=== PATIENT | male | born 1955 | race Caucasian/White ===

== ENCOUNTER 2018-07-23 11:22 | Observation (INO) ==
[2018-07-23] MEDS ORDERED: ASPIRIN 325 MG TABLET ONE (11:42)
[2018-07-23] MEDS ORDERED: ASPIRIN 325 MG TABLET PO STA (11:49)
[2018-07-23] MEDS ORDERED: SODIUM CHLORIDE 0.9% 1,000 ML IV STA (11:51)
[2018-07-23 11:55] LABS: Basophils # 0.1 10*3/uL (0.0-0.2); Basophils % 0.4 % (0.0-0.8); Eosinophils # 0.4 10*3/uL (0.0-0.87); Eosinophils % 3.2 % (0.00-10.9); Hematocrit 39.2 VOL% (42.0-52.0); Hemoglobin 12.3 GM/DL (14.0-18.0); Immature Granulocytes Absolute 0.13 #; Lymphocytes # 3.4 10*3/uL (1.4-4.0); Mean Corpuscular HGB Conc 31.4 GM/DL (32-36); Mean Corpuscular Volume 84.8 FL (87-102); Mean Platelet Volume 9.3 FL (9.6-12.0); Monocytes % 10.5 % (1.7-12.7); Neutrophils % 59.9 % (38.7-73.9); Platelet Count 394 T/CUMM (130-400); Red Blood Count 4.62 MC/CUMM (3.8-5.5); Red Cell Distribution Width 16.2 % (9.3-17.3); White Blood Count 13.6 T/CUMM (4-12)
[2018-07-23 12:04] LABS: INR 0.9; Partial Thromboplastin Time < 21.0 SECS (0-40)
[2018-07-23 12:15] LABS: Albumin 3.6 G/DL (3.4-5.0); Bilirubin,Total 0.4 MG/DL (0.2-1.0); Calcium 8.7 MG/DL (8.5-10.1); Osmolality,Calculated 285.5 MOS/KG (273-304); Total Protein 6.6 G/DL (6.4-8.3)
[2018-07-23 12:19] LABS: Troponin I < 0.015 NG/ML (0.00-0.045)
[2018-07-23 15:06] LABS: Apearance,Urine CLEAR (Clear); Bilirubin,Urine Negative (Negative); Blood, Urine Negative (Negative); Glucose,Urine (UA) Negative (Negative); Ketones,Urine 5 mg/dL (Negative); Nitrite,Urine Negative (Negative); Protein,Urine Negative; RBC,Urine <1 /HPF (0-4); Urine Color Yellow (Yellow); Urine Specific Gravity 1.058 (1.001-1.035); Urine Urobilinogen < 2.0 EU/DL (0.2-1.0); WBC,Urine 2 /HPF (0-6)
[2018-07-23 15:10] LABS: Barbiturates Screen,Urine Negative (Negative); Benzodiazepines Screen,Urine Negative (Negative); Cannabinoid Screen,Urine Negative (Negative); Opiate Screen,Urine Negative (Negative); Phencyclidine Screen,Urine Negative (Negative)
[2018-07-23] MEDS ORDERED: ONDANSETRON 4 MG/2 ML VIAL IV PRN (15:25)
[2018-07-23] MEDS ORDERED: ACETAMINOPHEN 325 MG TABLET PO PRN (15:25)
[2018-07-23] MEDS ORDERED: ENOXAPARIN 100 MG/ML SYRINGE SUBCUT SCH (16:00)
[2018-07-23] MEDS: SODIUM CHLORIDE 0.9% 1,000 ML IV SCH (16:30)
[2018-07-23 19:11] LABS: Hematocrit 35.7 VOL% (42.0-52.0)
[2018-07-23] MEDS: GEMFIBROZIL 600 MG TABLET PO SCH (20:21)
[2018-07-23] MEDS ORDERED: TAMSULOSIN 0.4 MG CAPSULE PO SCH (21:00)
[2018-07-23] MEDS ORDERED: ATORVASTATIN 10 MG TABLET PO SCH (21:00)
[2018-07-23] MEDS ORDERED: CARBIDOPA/LEVODOPA 25-100 MG TABLET PO SCH (21:00)
[2018-07-24 01:00] LABS: Calcium 7.8 MG/DL (8.5-10.1); Osmolality,Calculated 286.3 MOS/KG (273-304); Risk Ratio 2.47; Thyroid Stimulating Hormone 1.11 uIU/ml (0.358-3.74); VLDL CHOLESTEROL 45.6 MG/DL
[2018-07-24 01:03] LABS: Hematocrit 36.2 VOL% (42.0-52.0); Hemoglobin 11.2 GM/DL (14.0-18.0)
[2018-07-24] MEDS: SODIUM CHLORIDE 0.9% 1,000 ML IV SCH ×2 (01:49→08:51)
[2018-07-24 05:02] LABS: Basophils % 0.3 % (0.0-0.8); Eosinophils # 0.3 10*3/uL (0.0-0.87); Eosinophils % 3.6 % (0.00-10.9); Hematocrit 37.3 VOL% (42.0-52.0); Hemoglobin 11.5 GM/DL (14.0-18.0); Immature Granulocytes % 0.7 %; Immature Granulocytes Absolute 0.06 #; Lymphocytes # 1.4 10*3/uL (1.4-4.0); Lymphocytes % 15.2 % (21.2-54.2); Mean Corpuscular HGB Conc 30.8 GM/DL (32-36); Mean Corpuscular Volume 86.1 FL (87-102); Mean Platelet Volume 9.7 FL (9.6-12.0); Monocytes % 6.9 % (1.7-12.7); Neutrophils % 73.3 % (38.7-73.9); Platelet Count 326 T/CUMM (130-400); Red Blood Count 4.33 MC/CUMM (3.8-5.5); Red Cell Distribution Width 16.3 % (9.3-17.3)
[2018-07-24] MEDS: GEMFIBROZIL 600 MG TABLET PO SCH (08:53)
[2018-07-24] MEDS: PANTOPRAZOLE 40 MG TABLET PO SCH ×2 (08:54→08:58)
[2018-07-24] MEDS ORDERED: TAMSULOSIN 0.4 MG CAPSULE PO SCH (09:00)
[2018-07-24] MEDS ORDERED: predniSONE 5 MG TABLET PO SCH (09:00)
[2018-07-24] MEDS ORDERED: ENOXAPARIN 40 MG/0.4 ML SYRINGE SUBCUT SCH (09:00)
[2018-07-24] MEDS ORDERED: LOSARTAN 50 MG TABLET PO SCH (09:00)
[2018-07-24 12:30] VITALS: BP 129/76
[2018-07-24] MEDS ORDERED: ASPIRIN CHEW 81 MG TABLET PO SCH (20:00)
[2018-07-26] MEDS ORDERED: METHOTREXATE 50 MG/2 ML VIAL SUBCUT SCH (09:00)
== END 2018-07-24 15:08 | disposition home or self-care (01) ==
LOC: N.ED 11:22 → N.EDINP 11:22 → N.TELES 17:50
PROVIDERS: ADMIT Internal Medicine; ATTEND Internal Medicine

== ENCOUNTER 2020-10-12 10:20 | Inpatient (IN) ==
[2020-10-12 11:34] LABS: Basophils % 0.1 % (0.0-0.8); Eosinophils # 0.3 10*3/uL (0.0-0.87); Eosinophils % 1.8 % (0.00-10.9); Hematocrit 28.7 VOL% (42.0-52.0); Hemoglobin 8.6 GM/DL (14.0-18.0); Immature Granulocytes % 0.7 %; Immature Granulocytes Absolute 0.12 #; Lymphocytes # 0.8 10*3/uL (1.4-4.0); Mean Corpuscular Volume 73.8 FL (87-102); Mean Platelet Volume 8.6 FL (9.6-12.0); Monocytes % 7.3 % (1.7-12.7); Neutrophils % 85.1 % (38.7-73.9); Platelet Count 551 T/CUMM (130-400); Red Blood Count 3.89 MC/CUMM (3.8-5.5); Red Cell Distribution Width 22.9 % (9.3-17.3); White Blood Count 16.1 T/CUMM (4-12)
[2020-10-12 11:51] LABS: Hypochromasia 1+
[2020-10-12 11:52] LABS: Anisocytosis 1+; Microcytosis 1+; Platelet Estimate Increased; Polychromasia Slight
[2020-10-12 11:57] LABS: Albumin 3.1 G/DL (3.4-5.0); Bilirubin,Total 0.4 MG/DL (0.20-1.00); Calcium 8.2 MG/DL (8.5-10.1); Potassium 3.5 MMOL/L (3.5-5.1); Total Protein 6.2 G/DL (6.4-8.2)
[2020-10-12] MEDS ORDERED: HYDROmorphone 2 MG/1 ML VIAL IV STA (14:04)
[2020-10-12] MEDS ORDERED: PIPERACILLIN/TAZOBACTAM 3,375 MG in SODIUM CHLORIDE 0.9% 100 ML IV STA ×2 (14:04→14:07)
[2020-10-12] MEDS ORDERED: ONDANSETRON 4 MG/2 ML VIAL IV ONE (14:04)
[2020-10-12] MEDS ORDERED: GLUCAGON 1 MG VIAL IM PRN (15:00)
[2020-10-12] MEDS ORDERED: DEXTROSE 50% 25 GM/50 ML VIAL IV PRN (15:00)
[2020-10-12] MEDS ORDERED: ACETAMINOPHEN 325 MG TABLET PO PRN (15:00)
[2020-10-12] MEDS ORDERED: methylPREDNISolone SOD SUC 125 MG/2 ML VIAL IV STA (15:28)
[2020-10-12] MEDS: SODIUM CHLORIDE 0.9% 1,000 ML IV SCH (17:23)
[2020-10-12] MEDS: CIPROFLOXACIN INJ 400 MG/200 ML PREMIX IV SCH (17:27)
[2020-10-12] MEDS: methylPREDNISolone SOD SUC 40 MG/1 ML VIAL IV SCH ×2 (17:30→23:02)
[2020-10-12] MEDS: MESALAMINE 250 MG CAPSULE PO SCH ×2 (18:21→20:45)
[2020-10-12] MEDS: metroNIDAZOLE INJ 500 MG/100 ML PREMIX IV SCH ×2 (19:02→23:02)
[2020-10-12] MEDS: ONDANSETRON 4 MG/2 ML VIAL IV PRN (19:02)
[2020-10-12] MEDS: ENOXAPARIN 40 MG/0.4 ML SYRINGE SUBCUT SCH (19:06)
[2020-10-12 19:44] LABS: Bilirubin,Urine Negative (Negative); Blood, Urine Negative (Negative); Glucose,Urine (UA) Negative (Negative); Ketones,Urine Negative (Negative); Nitrite,Urine Negative (Negative); Protein,Urine Negative; RBC,Urine 1 /HPF (0-4); Urine Appearance CLEAR (Clear); Urine Color Yellow (Yellow); Urine Specific Gravity 1.025 (1.001-1.035); Urine Urobilinogen < 2.0 EU/DL (0.2-1.0)
[2020-10-12] MEDS: HydrOXYzine PAMOATE 50 MG CAPSULE PO PRN (20:44)
[2020-10-12] MEDS: CARBIDOPA/LEVODOPA 25-100 MG TABLET PO SCH (20:45)
[2020-10-12] MEDS: gemfibroziL 600 MG TABLET PO SCH (20:45)
[2020-10-12] MEDS: HYDROmorphone 2 MG/1 ML VIAL IV PRN (22:01)
[2020-10-13] MEDS: SODIUM CHLORIDE 0.9% 1,000 ML IV SCH ×3 (02:19→20:46)
[2020-10-13] MEDS: CIPROFLOXACIN INJ 400 MG/200 ML PREMIX IV SCH ×2 (03:18→15:48)
[2020-10-13 06:11] LABS: Basophils % 0.1 % (0.0-0.8); Hematocrit 27.7 VOL% (42.0-52.0); Hemoglobin 8.2 GM/DL (14.0-18.0); Immature Granulocytes % 0.8 %; Lymphocytes # 0.6 10*3/uL (1.4-4.0); Lymphocytes % 4.2 % (21.2-54.2); Mean Corpuscular HGB Conc 29.6 GM/DL (32-36); Mean Corpuscular Volume 73.7 FL (87-102); Mean Platelet Volume 8.7 FL (9.6-12.0); Monocytes % 1.2 % (1.7-12.7); Neutrophils % 93.7 % (38.7-73.9); Platelet Count 525 T/CUMM (130-400); Red Blood Count 3.76 MC/CUMM (3.8-5.5); Red Cell Distribution Width 22.7 % (9.3-17.3); White Blood Count 13.2 T/CUMM (4-12)
[2020-10-13 06:37] LABS: Calcium 7.9 MG/DL (8.5-10.1); Osmolality,Calculated 285.3 MOS/KG (273-304); Potassium 4.1 MMOL/L (3.5-5.1)
[2020-10-13 06:41] LABS: % Iron Saturation 2.4 % (18-50); Ferritin 37.8 ng/ml (26-388)
[2020-10-13 06:44] LABS: Lymphocytes 2 % (20-55); Segmented Neutrophils 96 % (50-85); Total Cells Counted 100
[2020-10-13 06:45] LABS: Hypochromasia Slight; Ovalocytes 1+
[2020-10-13 06:46] LABS: Macrocytosis 1+; Microcytosis 1+; Platelet Estimate Increased; Schistocytes 1+
[2020-10-13] MEDS: HYDROmorphone 2 MG/1 ML VIAL IV PRN ×3 (07:53→20:01)
[2020-10-13] MEDS: methylPREDNISolone SOD SUC 40 MG/1 ML VIAL IV SCH ×3 (09:18→23:45)
[2020-10-13] MEDS: metroNIDAZOLE INJ 500 MG/100 ML PREMIX IV SCH ×3 (09:18→23:45)
[2020-10-13] MEDS: FOLIC ACID 1 MG TABLET PO SCH (09:19)
[2020-10-13] MEDS: MESALAMINE 250 MG CAPSULE PO SCH ×4 (09:19→20:47)
[2020-10-13] MEDS: FLUDROCORTISONE 0.1 MG TABLET PO SCH (09:19)
[2020-10-13] MEDS: gemfibroziL 600 MG TABLET PO SCH ×2 (09:19→20:48)
[2020-10-13] MEDS: TAMSULOSIN 0.4 MG CAPSULE PO SCH ×2 (09:23→20:48)
[2020-10-13] MEDS: ONDANSETRON 4 MG/2 ML VIAL IV PRN ×3 (10:23→20:49)
[2020-10-13] MEDS ORDERED: IRON DEXTRAN 25 MG in SYRINGE 1 EACH IV ONE (10:30)
[2020-10-13] MEDS ORDERED: IRON SUCROSE IV ONE ×3 (10:30→11:30)
[2020-10-13] MEDS ORDERED: SODIUM CHLORIDE 0.9% IV ONE (10:38)
[2020-10-13] MEDS ORDERED: ZALEPLON 5 MG CAPSULE PO PRN (14:43)
[2020-10-13] MEDS: ENOXAPARIN 40 MG/0.4 ML SYRINGE SUBCUT SCH (15:52)
[2020-10-13] MEDS: CARBIDOPA/LEVODOPA 25-100 MG TABLET PO SCH (20:46)
[2020-10-14] MEDS: CIPROFLOXACIN INJ 400 MG/200 ML PREMIX IV SCH ×2 (02:31→19:21)
[2020-10-14] MEDS: HYDROmorphone 2 MG/1 ML VIAL IV PRN (03:13)
[2020-10-14 06:08] LABS: Basophils % 0.1 % (0.0-0.8); Hematocrit 23.1 VOL% (42.0-52.0); Hemoglobin 6.8 GM/DL (14.0-18.0); Immature Granulocytes % 0.9 %; Immature Granulocytes Absolute 0.15 #; Lymphocytes # 0.4 10*3/uL (1.4-4.0); Lymphocytes % 2.5 % (21.2-54.2); Mean Corpuscular HGB Conc 29.4 GM/DL (32-36); Mean Corpuscular Volume 73.8 FL (87-102); Mean Platelet Volume 8.9 FL (9.6-12.0); Monocytes % 0.9 % (1.7-12.7); NRBC # 0.03 10*3/uL; Neutrophils % 95.6 % (38.7-73.9); Platelet Count 492 T/CUMM (130-400); Red Blood Count 3.13 MC/CUMM (3.8-5.5); Red Cell Distribution Width 22.5 % (9.3-17.3); White Blood Count 17.1 T/CUMM (4-12)
[2020-10-14 06:42] LABS: Alanine Aminotransferase < 9 U/L (16-61); Albumin 2.4 G/DL (3.4-5.0); Alkaline Phosphatase 38 U/L (45-117); Aspartate Amino Transferase 13 U/L (0-37); Blood Urea Nitrogen 15 MG/DL (7-18); Calcium 7.4 MG/DL (8.5-10.1); Carbon Dioxide 24 MMOL/L (21-32); Estimated Glom Filtration Rate 118 ML/MIN; Glucose 155 MG/DL (74-106); Osmolality,Calculated 280.5 MOS/KG (273-304); Potassium 3.8 MMOL/L (3.5-5.1); Sodium 139 MMOL/L (136-145); Total Protein 5.5 G/DL (6.4-8.2)
[2020-10-14 07:15] LABS: Band Neutrophils 5 % (0-10); Lymphocytes 2 % (20-55); Nucleated Red Blood Cells 1 (0-5); Platelet Estimate Normal; Segmented Neutrophils 92 % (50-85); Total Cells Counted 100
[2020-10-14 07:16] LABS: Anisocytosis 3+; Hypersegmented Neutrophil Few; Ovalocytes Few
[2020-10-14] MEDS ORDERED: SODIUM CHLORIDE 0.9% 1,000 ML IV PRN (07:18)
[2020-10-14] MEDS ORDERED: FUROSEMIDE 20 MG/2 ML VIAL IV ONE ×3 (07:19→21:30)
[2020-10-14] MEDS: methylPREDNISolone SOD SUC 40 MG/1 ML VIAL IV SCH ×2 (08:35→22:23)
[2020-10-14] MEDS: ONDANSETRON 4 MG/2 ML VIAL IV PRN ×3 (08:35→17:01)
[2020-10-14] MEDS: FLUDROCORTISONE 0.1 MG TABLET PO SCH (08:39)
[2020-10-14] MEDS: metroNIDAZOLE INJ 500 MG/100 ML PREMIX IV SCH ×2 (08:40→17:01)
[2020-10-14] MEDS: MESALAMINE 250 MG CAPSULE PO SCH ×4 (08:40→22:24)
[2020-10-14] MEDS: FOLIC ACID 1 MG TABLET PO SCH (08:40)
[2020-10-14] MEDS: gemfibroziL 600 MG TABLET PO SCH ×2 (08:40→22:25)
[2020-10-14] MEDS: TAMSULOSIN 0.4 MG CAPSULE PO SCH (08:41)
[2020-10-14] MEDS ORDERED: ESZOPICLONE 1 MG TABLET PO PRN (09:35)
[2020-10-14] MEDS: SODIUM CHLORIDE 0.9% 1,000 ML IV SCH (12:07)
[2020-10-14] MEDS ORDERED: RIZATRIPTAN ODT 5 MG TABLET PO PRN (13:57)
[2020-10-14] MEDS ORDERED: oxyCODONE/ACETAMINOPHEN 5-325 MG TABLET PO PRN (13:58)
[2020-10-14] MEDS: CARBIDOPA/LEVODOPA 25-100 MG TABLET PO SCH (22:23)
[2020-10-15] MEDS: metroNIDAZOLE INJ 500 MG/100 ML PREMIX IV SCH ×3 (00:01→15:45)
[2020-10-15] MEDS: TAMSULOSIN 0.4 MG CAPSULE PO SCH ×2 (01:30→09:46)
[2020-10-15] MEDS: CIPROFLOXACIN INJ 400 MG/200 ML PREMIX IV SCH ×2 (05:33→15:44)
[2020-10-15] MEDS: SODIUM CHLORIDE 0.9% 1,000 ML IV SCH ×2 (05:34→06:45)
[2020-10-15 05:42] LABS: Basophils % 0.1 % (0.0-0.8); Hematocrit 28.5 VOL% (42.0-52.0); Hemoglobin 8.7 GM/DL (14.0-18.0); Immature Granulocytes % 1.1 %; Immature Granulocytes Absolute 0.14 #; Lymphocytes # 0.5 10*3/uL (1.4-4.0); Lymphocytes % 3.7 % (21.2-54.2); Mean Corpuscular HGB Conc 30.5 GM/DL (32-36); Mean Corpuscular Volume 76.4 FL (87-102); Mean Platelet Volume 8.8 FL (9.6-12.0); Monocytes % 1.5 % (1.7-12.7); Neutrophils % 93.6 % (38.7-73.9); Platelet Count 438 T/CUMM (130-400); Red Blood Count 3.73 MC/CUMM (3.8-5.5); Red Cell Distribution Width 22.8 % (9.3-17.3)
[2020-10-15 06:04] LABS: Calcium 7.5 MG/DL (8.5-10.1); Osmolality,Calculated 284.3 MOS/KG (273-304); Potassium 4.2 MMOL/L (3.5-5.1)
[2020-10-15 07:27] LABS: Anisocytosis 3+; Lymphocytes 4 % (20-55); Ovalocytes Few; Platelet Estimate Normal; Poikilocytosis Slight; Segmented Neutrophils 95 % (50-85); Total Cells Counted 100
[2020-10-15] MEDS: methylPREDNISolone SOD SUC 40 MG/1 ML VIAL IV SCH ×3 (09:45→21:54)
[2020-10-15] MEDS: FLUDROCORTISONE 0.1 MG TABLET PO SCH (09:45)
[2020-10-15] MEDS: MESALAMINE 250 MG CAPSULE PO SCH ×4 (09:45→21:53)
[2020-10-15] MEDS: gemfibroziL 600 MG TABLET PO SCH ×2 (09:46→21:53)
[2020-10-15] MEDS: FOLIC ACID 1 MG TABLET PO SCH (09:46)
[2020-10-15] MEDS ORDERED: FUROSEMIDE 40 MG/4 ML VIAL IV ONE (13:52)
[2020-10-15] MEDS ORDERED: ALBUTEROL/IPRATROPIUM 3 ML NEB RESP TX PRN (13:53)
[2020-10-15 17:04] LABS: Bilirubin,Urine Negative (Negative); Blood, Urine Negative (Negative); Glucose,Urine (UA) Negative (Negative); Hyaline Casts,Urine 4 /LPF (0-3); Ketones,Urine Negative (Negative); Nitrite,Urine Negative (Negative); Protein,Urine Negative; Urine Appearance CLEAR (Clear); Urine Color Yellow (Yellow); Urine Specific Gravity 1.015 (1.001-1.035); Urine Urobilinogen < 2.0 EU/DL (0.2-1.0)
[2020-10-15] MEDS ORDERED: HydrOXYzine PAMOATE 25 MG CAPSULE PO PRN (21:50)
[2020-10-15] MEDS: CARBIDOPA/LEVODOPA 25-100 MG TABLET PO SCH (21:53)
[2020-10-15] MEDS: HydrOXYzine PAMOATE 50 MG CAPSULE PO PRN (21:54)
[2020-10-16] MEDS: metroNIDAZOLE INJ 500 MG/100 ML PREMIX IV SCH ×2 (00:17→09:42)
[2020-10-16] MEDS: CIPROFLOXACIN INJ 400 MG/200 ML PREMIX IV SCH (02:36)
[2020-10-16 06:36] LABS: Basophils % 0.1 % (0.0-0.8); Hematocrit 29.7 VOL% (42.0-52.0); Hemoglobin 8.7 GM/DL (14.0-18.0); Immature Granulocytes % 1.3 %; Immature Granulocytes Absolute 0.17 #; Lymphocytes # 0.8 10*3/uL (1.4-4.0); Mean Corpuscular HGB Conc 29.3 GM/DL (32-36); Mean Corpuscular Volume 76.9 FL (87-102); Neutrophils % 88.6 % (38.7-73.9); Platelet Count 510 T/CUMM (130-400); Red Blood Count 3.86 MC/CUMM (3.8-5.5); Red Cell Distribution Width 23.1 % (9.3-17.3); White Blood Count 13.1 T/CUMM (4-12)
[2020-10-16 06:57] LABS: Hypochromasia 1+; Microcytosis 1+; Platelet Estimate Increased
[2020-10-16 07:06] LABS: Calcium 7.7 MG/DL (8.5-10.1); Osmolality,Calculated 286.1 MOS/KG (273-304); Potassium 3.9 MMOL/L (3.5-5.1)
[2020-10-16] MEDS: FLUDROCORTISONE 0.1 MG TABLET PO SCH (09:42)
[2020-10-16] MEDS: gemfibroziL 600 MG TABLET PO SCH (09:42)
[2020-10-16] MEDS: TAMSULOSIN 0.4 MG CAPSULE PO SCH (09:42)
[2020-10-16] MEDS: FOLIC ACID 1 MG TABLET PO SCH (09:42)
[2020-10-16] MEDS: MESALAMINE 250 MG CAPSULE PO SCH ×2 (09:43→14:35)
[2020-10-16] MEDS ORDERED: DOCUSATE SODIUM 100 MG CAPSULE PO SCH (12:00)
[2020-10-16 12:18] VITALS: BP 158/74
[2020-10-16] MEDS: methylPREDNISolone SOD SUC 40 MG/1 ML VIAL IV SCH (14:35)
== END 2020-10-16 14:37 | disposition home or self-care (01) | DRG 386 ==
LOC: EDUNIT# → EDBD → N.ED 10:20 → N.EDINP 15:00 → SUATTDRO 15:00 → N.5E 16:44
PROVIDERS: ADMIT Emergency Medicine; ATTEND Hospitalist

== ENCOUNTER 2021-08-17 09:07 | Inpatient (IN) ==
[2021-08-17] MEDS ORDERED: SODIUM CHLORIDE 0.9% 1,000 ML IV STA ×2 (09:42→10:44)
[2021-08-17] MEDS ORDERED: HYDROmorphone 1 MG/1 ML SYRINGE IV STA (09:42)
[2021-08-17] MEDS ORDERED: PROCHLORPERAZINE 10 MG/2 ML VIAL IV ONE (09:43)
[2021-08-17 10:12] LABS: Basophils # 0.1 10*3/uL (0.0-0.2); Basophils % 0.2 % (0.0-0.8); Eosinophils % 3.5 % (0.00-10.9); Hematocrit 40.1 VOL% (42.0-52.0); Immature Granulocytes % 0.8 %; Immature Granulocytes Absolute 0.22 #; Lymphocytes # 3.1 10*3/uL (1.4-4.0); Mean Corpuscular HGB Conc 32.4 GM/DL (32-36); Mean Corpuscular Volume 89.3 FL (87-102); Monocytes # 1.4 10*3/uL (0.11-0.8); Monocytes % 5.1 % (1.7-12.7); Neutrophils % 79.4 % (38.7-73.9); Platelet Count 646 T/CUMM (130-400); Red Blood Count 4.49 MC/CUMM (3.8-5.5); Red Cell Distribution Width 14.6 % (9.3-17.3); White Blood Count 28.4 T/CUMM (4-12)
[2021-08-17 10:23] LABS: PT Patient Result 10.6 SECS (10.5-12.0)
[2021-08-17 10:35] LABS: Band Neutrophils 7 % (0-10); Eosinophils 4 % (0-10); Lymphocytes 16 % (20-55); Platelet Estimate Increased; Total Cells Counted 100
[2021-08-17 10:36] LABS: Anisocytosis Slight; Macrocytosis Slight
[2021-08-17 10:37] LABS: Albumin 3.4 G/DL (3.4-5.0); Bilirubin,Total 0.5 MG/DL (0.20-1.00); Calcium 10.1 MG/DL (8.5-10.1); Osmolality,Calculated 274.8 MOS/KG (273-304); Potassium 4.9 MMOL/L (3.5-5.1); Total Protein 6.9 G/DL (6.4-8.2)
[2021-08-17 11:22] LABS: Amorphous Crystals,Urine Moderate /HPF (Few); Mucus,Urine Occasional /LPF (Occasional); RBC,Urine 4 /HPF (0-4); Urine Appearance Cloudy (Clear); Urine Color Yellow (Yellow)
[2021-08-17 11:23] LABS: Bilirubin,Urine Negative (Negative); Blood, Urine Negative (Negative); Glucose,Urine (UA) Negative (Negative); Ketones,Urine 40 mg/dL (Negative); Nitrite,Urine Negative (Negative); Protein,Urine Negative (Negative); Urine Urobilinogen 0.2 eU/dL (<2.0); Urine pH 8.5 (4.5-8.0)
[2021-08-17] MEDS ORDERED: methylPREDNISolone SOD SUC 125 MG/2 ML VIAL IV STA (11:36)
[2021-08-17] MEDS ORDERED: PIPERACILLIN/TAZOBACTAM 3,375 MG in SODIUM CHLORIDE 0.9% 100 ML IV STA (11:36)
[2021-08-17] MEDS ORDERED: ACETAMINOPHEN 325 MG TABLET PO PRN (12:05)
[2021-08-17] MEDS ORDERED: GLUCAGON 1 MG VIAL IM PRN (12:05)
[2021-08-17] MEDS ORDERED: DEXTROSE 10% 250 ML BAG IV PRN (12:11)
[2021-08-17] MEDS ORDERED: SODIUM CHLORIDE 0.9% 1,000 ML IV ONE (12:23)
[2021-08-17] MEDS ORDERED: POTASSIUM CHLORIDE 20 MEQ TABLET PO PRN (12:25)
[2021-08-17] MEDS ORDERED: MAGNESIUM SULF RIDER 4 GM/100 ML PREMIX IV PRN (12:25)
[2021-08-17] MEDS ORDERED: MAGNESIUM SULF RIDER 2 GM/50 ML PREMIX IV PRN (12:25)
[2021-08-17] MEDS ORDERED: amLODIPine 5 MG TABLET PO PRN (12:26)
[2021-08-17] MEDS ORDERED: METAXALONE 800 MG TABLET PO PRN (12:26)
[2021-08-17] MEDS ORDERED: DICYCLOMINE 10 MG CAPSULE PO PRN (12:26)
[2021-08-17] MEDS ORDERED: oxyCODONE/ACETAMINOPHEN 5-325 MG TABLET PO PRN (12:26)
[2021-08-17] MEDS ORDERED: ZALEPLON 5 MG CAPSULE PO PRN (12:34)
[2021-08-17] MEDS: ONDANSETRON 4 MG/2 ML VIAL IV PRN ×2 (13:48→19:10)
[2021-08-17] MEDS: CIPROFLOXACIN INJ 400 MG/200 ML PREMIX IV SCH (14:01)
[2021-08-17] MEDS: HYDROmorphone 1 MG/1 ML SYRINGE IV PRN ×3 (14:01→23:38)
[2021-08-17] MEDS: SODIUM CHLORIDE 0.9% 1,000 ML IV SCH ×3 (14:10→21:26)
[2021-08-17] MEDS: metroNIDAZOLE INJ 500 MG/100 ML PREMIX IV SCH ×2 (15:06→21:28)
[2021-08-17] MEDS ORDERED: FOLIC ACID 1 MG TABLET PO SCH (21:00)
[2021-08-17] MEDS: gemfibroziL 600 MG TABLET PO SCH (21:26)
[2021-08-17] MEDS: CARBIDOPA/LEVODOPA 25-100 MG TABLET PO SCH (21:26)
[2021-08-17] MEDS: methylPREDNISolone SOD SUC 40 MG/1 ML VIAL IV SCH (21:27)
[2021-08-17] MEDS: ENOXAPARIN 40 MG/0.4 ML SYRINGE SUBCUT SCH (21:27)
[2021-08-17] MEDS ORDERED: OMEPRAZOLE ODT 20 MG TABLET PER TUBE PRN (22:24)
[2021-08-18] MEDS: CIPROFLOXACIN INJ 400 MG/200 ML PREMIX IV SCH ×2 (00:31→13:02)
[2021-08-18] MEDS: methylPREDNISolone SOD SUC 40 MG/1 ML VIAL IV SCH ×3 (04:06→20:39)
[2021-08-18] MEDS: HYDROmorphone 1 MG/1 ML SYRINGE IV PRN ×3 (04:07→20:38)
[2021-08-18] MEDS: SODIUM CHLORIDE 0.9% 1,000 ML IV SCH ×3 (04:11→21:55)
[2021-08-18 05:19] LABS: Basophils % 0.1 % (0.0-0.8); Hematocrit 32.4 VOL% (42.0-52.0); Hemoglobin 10.6 GM/DL (14.0-18.0); Immature Granulocytes % 0.6 %; Immature Granulocytes Absolute 0.07 #; Lymphocytes # 0.8 10*3/uL (1.4-4.0); Lymphocytes % 6.5 % (21.2-54.2); Mean Corpuscular HGB Conc 32.7 GM/DL (32-36); Mean Platelet Volume 9.1 FL (9.6-12.0); Monocytes # 0.2 10*3/uL (0.11-0.8); Monocytes % 1.5 % (1.7-12.7); Neutrophils % 91.3 % (38.7-73.9); Platelet Count 533 T/CUMM (130-400); Red Blood Count 3.56 MC/CUMM (3.8-5.5); Red Cell Distribution Width 14.2 % (9.3-17.3); White Blood Count 12.3 T/CUMM (4-12)
[2021-08-18 05:35] LABS: Calcium 8.3 MG/DL (8.5-10.1); Osmolality,Calculated 280.3 MOS/KG (273-304); Potassium 4.4 MMOL/L (3.5-5.1)
[2021-08-18] MEDS: metroNIDAZOLE INJ 500 MG/100 ML PREMIX IV SCH ×3 (05:35→21:00)
[2021-08-18 06:18] LABS: Anisocytosis 1+; Band Neutrophils 3 % (0-10); Lymphocytes 5 % (20-55); Macrocytosis Slight; Platelet Estimate Increased; Total Cells Counted 100
[2021-08-18] MEDS ORDERED: PANTOPRAZOLE 40 MG TABLET PO SCH (09:00)
[2021-08-18] MEDS: TAMSULOSIN 0.4 MG CAPSULE PO SCH (09:02)
[2021-08-18] MEDS: gemfibroziL 600 MG TABLET PO SCH ×2 (09:03→20:39)
[2021-08-18] MEDS: CARBIDOPA/LEVODOPA 25-100 MG TABLET PO SCH (20:39)
[2021-08-18] MEDS: ENOXAPARIN 40 MG/0.4 ML SYRINGE SUBCUT SCH (20:40)
[2021-08-19] MEDS: SODIUM CHLORIDE 0.9% 1,000 ML IV SCH ×2 (00:20→11:19)
[2021-08-19] MEDS: CIPROFLOXACIN INJ 400 MG/200 ML PREMIX IV SCH ×2 (00:20→12:50)
[2021-08-19] MEDS: methylPREDNISolone SOD SUC 40 MG/1 ML VIAL IV SCH ×3 (03:34→21:07)
[2021-08-19 05:18] LABS: Basophils % 0.1 % (0.0-0.8); Hematocrit 30.7 VOL% (42.0-52.0); Hemoglobin 9.5 GM/DL (14.0-18.0); Immature Granulocytes % 0.5 %; Immature Granulocytes Absolute 0.06 #; Lymphocytes # 0.8 10*3/uL (1.4-4.0); Lymphocytes % 6.8 % (21.2-54.2); Mean Corpuscular HGB Conc 30.9 GM/DL (32-36); Mean Corpuscular Volume 89.8 FL (87-102); Mean Platelet Volume 9.3 FL (9.6-12.0); Monocytes # 0.3 10*3/uL (0.11-0.8); Monocytes % 2.7 % (1.7-12.7); Neutrophils % 89.9 % (38.7-73.9); Platelet Count 433 T/CUMM (130-400); Red Blood Count 3.42 MC/CUMM (3.8-5.5); White Blood Count 11.4 T/CUMM (4-12)
[2021-08-19 05:42] LABS: Alanine Aminotransferase 11 U/L (16-61); Albumin 2.5 G/DL (3.4-5.0); Alkaline Phosphatase 60 U/L (45-117); Aspartate Amino Transferase 13 U/L (0-37); Bilirubin,Total < 0.39 MG/DL (0.20-1.00); Blood Urea Nitrogen 8 MG/DL (7-18); Carbon Dioxide 24 MMOL/L (21-32); Chloride 113 MMOL/L (98-107); Glucose 137 MG/DL (74-106); Potassium 3.7 MMOL/L (3.5-5.1); Sodium 143 MMOL/L (136-145); Total Protein 5.6 G/DL (6.4-8.2)
[2021-08-19] MEDS: metroNIDAZOLE INJ 500 MG/100 ML PREMIX IV SCH ×3 (05:47→21:06)
[2021-08-19] MEDS: TAMSULOSIN 0.4 MG CAPSULE PO SCH (09:20)
[2021-08-19] MEDS: gemfibroziL 600 MG TABLET PO SCH ×2 (09:20→21:07)
[2021-08-19] MEDS: CARBIDOPA/LEVODOPA 25-100 MG TABLET PO SCH (21:07)
[2021-08-19] MEDS: ENOXAPARIN 40 MG/0.4 ML SYRINGE SUBCUT SCH (21:07)
[2021-08-20] MEDS: CIPROFLOXACIN INJ 400 MG/200 ML PREMIX IV SCH ×2 (00:55→12:40)
[2021-08-20] MEDS: metroNIDAZOLE INJ 500 MG/100 ML PREMIX IV SCH ×2 (05:02→14:03)
[2021-08-20] MEDS: methylPREDNISolone SOD SUC 40 MG/1 ML VIAL IV SCH ×2 (05:03→12:39)
[2021-08-20 05:59] LABS: Basophils % 0.1 % (0.0-0.8); Hematocrit 33.3 VOL% (42.0-52.0); Hemoglobin 10.4 GM/DL (14.0-18.0); Immature Granulocytes % 0.7 %; Lymphocytes # 0.9 10*3/uL (1.4-4.0); Lymphocytes % 5.7 % (21.2-54.2); Mean Corpuscular HGB Conc 31.2 GM/DL (32-36); Mean Corpuscular Volume 91.5 FL (87-102); Mean Platelet Volume 9.5 FL (9.6-12.0); Monocytes # 0.4 10*3/uL (0.11-0.8); Monocytes % 2.8 % (1.7-12.7); NRBC # 0.02 10*3/uL; Neutrophils % 90.7 % (38.7-73.9); Platelet Count 536 T/CUMM (130-400); Red Blood Count 3.64 MC/CUMM (3.8-5.5); Red Cell Distribution Width 14.2 % (9.3-17.3)
[2021-08-20 06:06] LABS: Alanine Aminotransferase < 9 U/L (16-61); Albumin 2.8 G/DL (3.4-5.0); Alkaline Phosphatase 61 U/L (45-117); Aspartate Amino Transferase 13 U/L (0-37); Bilirubin,Total < 0.39 MG/DL (0.20-1.00); Blood Urea Nitrogen 8 MG/DL (7-18); Calcium 8.6 MG/DL (8.5-10.1); Carbon Dioxide 26 MMOL/L (21-32); Chloride 112 MMOL/L (98-107); Glucose 130 MG/DL (74-106); Osmolality,Calculated 280.3 MOS/KG (273-304); Potassium 3.9 MMOL/L (3.5-5.1); Sodium 141 MMOL/L (136-145); Total Protein 6.2 G/DL (6.4-8.2)
[2021-08-20 06:28] LABS: Lymphocytes 1 % (20-55); Platelet Estimate Adequate; Total Cells Counted 100
[2021-08-20] MEDS: gemfibroziL 600 MG TABLET PO SCH (08:54)
[2021-08-20] MEDS: TAMSULOSIN 0.4 MG CAPSULE PO SCH (08:55)
[2021-08-20 11:53] VITALS: BP 136/84
[2021-08-20] MEDS ORDERED: metroNIDAZOLE 500 MG TABLET PO SCH (17:00)
== END 2021-08-20 15:17 | disposition home or self-care (01) | DRG 386 ==
LOC: N.ED 09:07 → SUATTDRO 12:05 → N.EDINP 12:05 → N.3E 12:27
PROVIDERS: ADMIT Internal Medicine; ATTEND Internal Medicine